=== PATIENT | male | born 1960 | race African-American/Black ===

== ENCOUNTER 2017-02-10 09:14 | Emergency (ER) | payer MEDICAID, OTHER ==
[~2017-02-10] VITALS: Ht 167.6 cm; Wt 96.2 kg
[2017-02-10] MEDS ORDERED: Ketorolac 30mg Inj IM ONE (11:15)
[2017-02-10] MEDS ORDERED: IBUPROFEN600 MG ORAL (11:30)
[2017-02-10 11:51] VITALS: BP 110/70
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
== END 2017-02-10 11:57 | disposition home or self-care (01) ==
LOC: EMR 10:15
DX: M79.605 Pain in left leg (principal); G89.29 Other chronic pain; R60.9 Edema, unspecified; F20.9 Schizophrenia, unspecified
CPT/HCPCS: 73590; 96372; 99283; J1885

== ENCOUNTER 2018-05-09 14:31 | Emergency (ER) | payer OTHER ==
[~2018-05-09] VITALS: Ht 170.2 cm; Wt 101.2 kg
[~2018-05-09 14:31] MED LIST: IBUPROFEN600 MG ORAL
[2018-05-09] MEDS ORDERED: Isovue-300 100ml vial INJ PRN (15:15)
--- NOTE | 2018-05-09 15:59 | Emergency Room Report ---
History of Present Illness General Chief Complaint: Lower Back Pain or Injury Source: Patient Present Illness HPI 57 y.o. M, hx of lower leg deformity post surgery/accident, schizophrenia, here c/o 2 days of left ankle pain and left flank pain post fall and twisting injury. pt was comming down stairs with his cane 2 days ago, missted a step, and twisted left ankle, hiting left flank to the railing. c/o left flank pain, radiating to left leg, and left ankle pain both 8/10. denies tingling/ numbness. took Ibuprofen for pain. also c/o dysuria, no urinary/bowel incontience, no saddle parasthesia. denies hematuria, head injury, cp, sob, palpitation. Allergies: Coded Allergies: No Known Allergies (Unverified , 02/10/17) Patient History Past Medical History: see triage record Past Surgical History: none Pertinent Family History: none Reviewed Nursing Documentation: PMH: Agreed; PSxH: Agreed Nursing Documentation-PMH History Of Psychiatric Problem: Yes - Schizophrenia, Bipolar Depression Review of Systems All Other Systems: negative except mentioned in HPI Physical Exam Vital Signs Date Time Temp Pulse Resp B/P (MAP) Pulse Ox O2 Delivery O2 Flow Rate FiO2 05/09/18 14:41 98.3 92 18 151/96 95 Room Air 98.2 Sp02 EP Interpretation: reviewed General Appearance: normal inspection, well appearing, no apparent distress, alert, GCS 15 Eyes: bilateral eye normal inspection, bilateral eye PERRL ENT: normal ENT inspection, hearing grossly normal Neck: normal inspection, full range of motion, supple Respiratory: normal inspection, chest non-tender, lungs clear, normal breath sounds, no rhonchi, no respiratory distress, no retraction, no accessory muscle use Cardiovascular #1: normal inspection, normal peripheral pulses, regular rate, rhythm, no edema, no JVD, no murmur Cardiovascular #2: 2+ dorsalis pedis (R), 2+ dorsalis pedis (L) Gastrointestinal: normal inspection, normal bowel sounds, non tender, soft, no mass Rectal: deferred Genitourinary: deferred Musculoskeletal: no calf tenderness, pelvis stable, decreased range of motion - left extremitiy , Ricky's Sign negative, swelling - left ankle and foot, other - left flank TTP Neurologic: normal inspection, alert, oriented x3 Psychiatric: normal inspection, judgement/insight normal, memory normal Skin: normal inspection, normal color, no rash, other - deformity of skin over left lower extremitiy Lymphatic: normal inspection, no adenopathy Medical Decision Making PA Attestation all dx, orders, tx plans reviewed and discussed with my supervising physcian Dr. Baldwin Reaction to Intervention: Improved Diagnostic Impression: Primary Impression: Contusion of flank and back Additional Impression: Ankle sprain ER Course 57 y.o. M, hx of lower leg deformity post surgery/accident, schizophrenia, here c/o 2 days of left ankle pain and left flank pain post fall and twisting injury. pt was comming down stairs with his cane 2 days ago, missted a step, and twisted left ankle, hiting left flank to the railing. c/o left flank pain, radiating to left leg, and left ankle pain both 8/10. denies tingling/ numbness. took Ibuprofen for pain. also c/o dysuria, no urinary/bowel incontience, no saddle parasthesia. denies hematuria, head injury, cp, sob, palpitation. Ddx considered but are not limited to ankle fx, contusion to abdomen, ankle sprain Vital signs: are WNL, pt. is afebrile H&PE are most consistent with abd contusion, ankle sprain ORDERS: L ankle and L foot Xray, abd CT w/contrast, CBC, CMP, UA ED INTERVENTIONS: tramadol 50mg po given in ED once DISCHARGE: At this time pt. is stable for d/c to home. Will provide printed patient care instructions, and any necessary prescriptions. Care plan and follow up instructions have been discussed with the patient prior to discharge. BUn and creatinine WNL RBC in UA: 0-2 Lab Results Impression no acute etiology WNL Other X-Ray Diagnostic Results Other X-Ray Diagnostic Results : X-Ray ordered: left ankle and foot # of Views/Limited Vs Complete: 2 View Indication: Swelling EP Interpretation: Yes PA Xray: Interpretation reviewed, by supervising MD, and agrees with findings. Interpretation: no dislocation, no soft tissue swelling, no fractures, other - old fx of tibia and fibula Electronically Signed by: kristofer Worrell PA-C CT/MRI/US Diagnostic Results CT/MRI/US Diagnostic Results : Imaging Test Ordered: abd CT w/contrast Impression CT ABDOMEN & PELVIS With Contrast: No appendicitis, SBO, or diverticulitis. Moderate colonic stool. Mildly thickened distal esophagus which may be hiatal hernia, underdistention, versus esophagitis. No hydronephrosis or ureteral calculus. Left adrenal small nodularity. Unremarkable gallbladder and pancreas. Last Vital Signs Date Time Temp Pulse Resp B/P (MAP) Pulse Ox O2 Delivery O2 Flow Rate FiO2 05/09/18 14:41 98.3 92 18 151/96 95 Room Air 98.2 Status: improved Disposition: HOME, SELF-CARE Condition: Stable Scripts Tramadol Hcl* (ULTRAM*) 50 Mg Tablet 50 MG ORAL Q12 PRN for For Pain for 7 Days, #15 TAB 0 Refills Prov: Kristofer Pandya 05/09/18 Patient Instructions: Ankle Sprain, Contusion, Back Pain, Adult Additional Instructions: follow up with primary dr, take tramadol as directed, avoid straneous physical activity if pain worsens return to ED Kristofer Pandya May 09, 2018 15:59
[2018-05-09 16:05] LABS: APPEARANCE,URINE CLEAR; BILIRUBIN, URINE NEGATIVE (NEGATIVE); COLOR,URINE PALE YELLOW; GLUCOSE, URINE (UA) NEGATIVE (NEGATIVE); KETONES,URINE NEGATIVE (NEGATIVE); LEUKOCYTE ESTERASE ,URINE NEGATIVE (NEGATIVE); NITRITE,URINE NEGATIVE (NEGATIVE); PH,URINE 6.5 (4.5-8.0); PROTEIN,URINE NEGATIVE (NEGATIVE); UROBILINOGEN,URINE NORMAL MG/DL (0.0-1.0)
[2018-05-09 16:06] LABS: EOSINOPHILS % (AUTO) 1.2 % (0.0-3.0); HEMATOCRIT 43.7 % (42.0-52.0); HEMOGLOBIN 15.4 G/DL (14.2-18.0); LYMPHOCYTES % (AUTO) 41.4 % (20.0-45.0); MEAN CORPUSCULAR VOLUME 91 FL (80-99); MONOCYTES % (AUTO) 5.4 % (1.0-10.0); PLATELET COUNT 233 K/UL (150-450); RED BLOOD COUNT 4.79 M/UL (4.70-6.10); WHITE BLOOD COUNT 6.8 K/UL (4.8-10.8)
[2018-05-09] MEDS ORDERED: traMADol 50mg tab ORAL ONE (16:30)
[2018-05-09 16:35] LABS: ANION GAP 8 mmol/L (5-15); BLOOD UREA NITROGEN 10 mg/dL (7-18); CALCIUM 8.8 MG/DL (8.5-10.1); CARBON DIOXIDE 27 MMOL/L (21-32); CHLORIDE 105 MMOL/L (98-107); POTASSIUM 3.6 MMOL/L (3.5-5.1); SODIUM 140 MMOL/L (136-145)
[2018-05-09 16:40] LABS: ALANINE AMINOTRANSFERASE 46 U/L (12-78); ALBUMIN 3.7 G/DL (3.4-5.0); ALKALINE PHOSPHATASE 71 U/L (46-116); ASPARTATE AMINO TRANSFERASE 26 U/L (15-37); BILIRUBIN,TOTAL 0.4 MG/DL (0.2-1.0)
[2018-05-09] MEDS ORDERED: TRAMADOL HCL50 MG ORAL (17:42)
[2018-05-09 18:15] VITALS: BP 150/96
--- NOTE | 2018-05-10 08:46 | Diagnostic Imaging Report ---
Clinical Indication: Left flank pain Technique: No oral contrast utilized, per emergency room physician request IV administration nonionic contrast. Venous phase spiral acquisition obtained through the abdomen and pelvis. Multiplanar reconstructions were generated. Total dose length product 1025 mGycm. CTDIvol(s) 18 mGy. Dose reduction achieved using automated exposure control Comparison: none Findings: The appendix is normal. There is colonic diverticulosis. No evidence of diverticulitis. There is a tiny fat-containing right inguinal hernia. No small bowel distention. No free or loculated intraperitoneal air or fluid is evident. There is a small sliding-type hiatal hernia. The stomach demonstrates a fundal diverticulum. The duodenum is unremarkable. The liver, gallbladder, bile ducts, pancreas, spleen, adrenals are unremarkable. The kidneys are unremarkable. No retroperitoneal or mesenteric mass or adenopathy. No pelvic mass or adenopathy. Bladder is unremarkable. The included lung bases demonstrate posterior dependent atelectatic changes. The heart is upper limits normal in size. The bones demonstrate minimal degenerative spondylosis changes. A small bone island seen in the left iliac bone Impression: No acute abnormality Colonic diverticulosis. No evidence of diverticulitis Incidental findings as noted, including tiny fat-containing right inguinal hernia, hiatal hernia, gastric fundal diverticulum, degenerative spondylosis This agrees with the preliminary interpretation provided overnight by [facility] teleradiology service. . The CT scanner at [facility] is accredited by the [employer] and the scans are performed using protocols designed to limit radiation exposure to as low as reasonably achievable to attain images of sufficient resolution adequate for diagnostic evaluation
--- NOTE | 2018-05-10 10:55 | Diagnostic Imaging Report ---
Indication: Pain, trauma Technique: 3 views of the left ankle Comparison: none Findings: There is marked chronic appearing deformity of the ankle. Screw holes from presumably prior hardware are seen in the distal tibia, talus, and calcaneus. There is an old healed fracture deformity of the distal fibula. There is marked narrowing of the ankle joint and adjacent joint surfaces. The ankle joint may even be ankylosed, although this is difficult to state. No definite acute fractures no dislocations. Bones appear somewhat demineralized Impression: Extensive chronic, posttraumatic, postsurgical deformity, as described No definite acute bony trauma. However, the extent of the chronic changes makes superimposed acute process difficult to confidently exclude
--- NOTE | 2018-05-10 15:07 | Diagnostic Imaging Report ---
Indication: Pain, trauma Technique: 3 views left foot Comparison: none Findings: There is hallux valgus. No definite acute fractures. No dislocations. There is extensive chronic appearing deformity of the ankle and hindfoot. Bones appear osteoporotic Impression: No acute process. Findings as noted
== END 2018-05-09 18:15 | disposition home or self-care (01) ==
LOC: EMR 15:19
DX: S30.0XXA Contusion of lower back and pelvis, initial encounter (principal); S93.402A Sprain of unspecified ligament of left ankle, initial encounter; W19.XXXA Unspecified fall, initial encounter; Y92.9 Unspecified place or not applicable; F20.9 Schizophrenia, unspecified; F31.9 Bipolar disorder, unspecified; K57.30 Diverticulosis of large intestine without perforation or abscess without bleeding
CPT/HCPCS: 36415; 73610; 73630; 74177; 80053; 81001; 85025; 99284; Q9967

== ENCOUNTER 2018-05-12 09:20 | Emergency (ER) | payer OTHER ==
[~2018-05-12] VITALS: Ht 170.2 cm; Wt 100.7 kg
[~2018-05-12 09:20] MED LIST changes: +TRAMADOL HCL50 MG ORAL
[2018-05-12 09:37] VITALS: BP 144/89
--- NOTE | 2018-05-12 10:32 | Emergency Room Report ---
History of Present Illness General Chief Complaint: Lower Back Pain or Injury Source: Patient Present Illness HPI Patient fell at [employer] [place] down steps. He was seen here initially with xrays and CT. Has had tramadol but still with pain and requesting back brace. Pain is in lower back. Stiffness and muscular. No other subsequent trauma. He is in recovery and Motrin was not filled or given to him. The pain is rated 9/10, more on L side. No new weakness, numbness, saddle numbness, incontinence, fevers, dysuria. Walks with cane as had prior L ankle injury and surgery. There is chronic swelling of the ankle which is unchanged. Allergies: Coded Allergies: No Known Allergies (Unverified , 02/10/17) Patient History Past Medical History: see triage record Past Surgical History: other - L ankle surgery Social History: Reports: smoking, drug use - prior Social History Narrative [facility] Reviewed Nursing Documentation: PMH: Agreed; PSxH: Agreed Nursing Documentation-PMH History Of Psychiatric Problem: Yes Review of Systems Constitutional: Reports: see HPI Respiratory: Denies: cough Cardiovascular: Denies: chest pain Gastrointestinal: Denies: nausea Genitourinary: Reports: see HPI Musculoskeletal: Reports: see HPI Skin: Denies: rash Neurological: Reports: see HPI Hematologic/Lymphatic: Denies: easy bleeding Physical Exam Vital Signs Date Time Temp Pulse Resp B/P (MAP) Pulse Ox O2 Delivery O2 Flow Rate FiO2 05/12/18 09:28 98.4 79 18 144/89 98 Room Air 98.4 Sp02 EP Interpretation: reviewed, normal General Appearance: well appearing, no apparent distress, GCS 15 Head: normocephalic, atraumatic Eyes: left eye other - tear tattoos; bilateral eye normal inspection, bilateral eye PERRL ENT: hearing grossly normal, normal voice, moist mucus membranes Neck: full range of motion, supple Respiratory: chest non-tender, lungs clear, normal breath sounds, no respiratory distress, speaking full sentences Cardiovascular #1: regular rate, rhythm, edema - L lower leg Cardiovascular #2: 2+ radial (L) Gastrointestinal: normal inspection, normal bowel sounds, overweight Musculoskeletal: other - no Ricky's, lumbar tenderrness, not bony. Able to sit and stand without difficulty. Walks with cane and has chronic discomfot in L ankle. (Chin is there.) SLR with inc in lumbar tenderness, no radiation to lower leg Neurologic: alert, motor strength/tone normal, DTRs symmetric, sensory intact, speech normal Psychiatric: mood/affect normal Skin: no rash Medical Decision Making Diagnostic Impression: Primary Impression: Low back pain Qualified Codes: M54.5 - Low back pain Additional Impression: Unspecified injury of lower back, sequela ER Course Patient with continued pain post fall 05/09. DDx: muscle spasm, strain, disk disease. He has not been taking anti-inflammatory medication. These will help. Need to review studies and will give Motrin here. Also, requesting back brace (which will be prescribed). No fevers or urinary symptoms, however, will check urine to exclude UTI. X ray studies reviewed. UA clear. Improved with treatment. Discussed need for physical therapy. Patient stable for outpatient observation and treatment. Labs Test 05/12/18 10:05 Urine Color Yellow Urine Appearance Clear Urine pH 6. (4.5-8.0) Urine Specific [place] 1.020 (1.005-1.035) Urine Protein Negative (NEGATIVE) Urine Glucose (UA) Negative (NEGATIVE) Urine Ketones Negative (NEGATIVE) Urine Occult Blood Negative (NEGATIVE) Urine Nitrite Negative (NEGATIVE) Urine Bilirubin Negative (NEGATIVE) Urine Urobilinogen Normal MG/DL (0.0-1.0) Urine Leukocyte Esterase 1+ (NEGATIVE) Urine RBC 0 /HPF (0 - 0) Urine WBC 0-2 /HPF (0 - 0) Urine Squamous Epithelial Cells Occasional /LPF Urine Bacteria Occasional /HPF (NONE) Last Vital Signs Date Time Temp Pulse Resp B/P (MAP) Pulse Ox O2 Delivery O2 Flow Rate FiO2 05/12/18 12:06 98.6 76 15 137/85 100 Room Air 98.6 Status: improved Disposition: HOME, SELF-CARE - Jump Start Condition: Improved Scripts Back Brace (BACK STABILIZER) 1 Each Each EACH for injury, #1 Prov: Jerel Martinez M.D. 05/12/18 Acetaminophen (Tylenol) 325 Mg Tablet 650 MG ORAL Q6H PRN for Prn Pain/Headache/Temp > 101, #20 TAB 0 Refills Prov: Jerel Martinez M.D. 05/12/18 Ibuprofen* (MOTRIN*) 600 Mg Tablet 600 MG ORAL Q6H PRN for For Pain, #20 TAB Prov: Jerel Martinez M.D. 05/12/18 Referrals: NON PHYSICIAN (PCP) Jerel Martinez M.D. May 12, 2018 10:32
[2018-05-12 10:35] LABS: APPEARANCE,URINE CLEAR; COLOR,URINE YELLOW
[2018-05-12] MEDS ORDERED: TYLENOL325 MG ORAL (10:35)
[2018-05-12] MEDS ORDERED: IBUPROFEN600 MG ORAL (10:35)
[2018-05-12 10:38] LABS: BILIRUBIN, URINE NEGATIVE (NEGATIVE); GLUCOSE, URINE (UA) NEGATIVE (NEGATIVE); KETONES,URINE NEGATIVE (NEGATIVE); NITRITE,URINE NEGATIVE (NEGATIVE); PROTEIN,URINE NEGATIVE (NEGATIVE); UROBILINOGEN,URINE NORMAL MG/DL (0.0-1.0)
[2018-05-12 10:39] LABS: LEUKOCYTE ESTERASE ,URINE 1+ (NEGATIVE)
[2018-05-12] MEDS ORDERED: BACK STABILIZE1 EACH MC (11:41)
[2018-05-12 12:06] VITALS: BP 137/85
== END 2018-05-12 12:05 | disposition home or self-care (01) ==
LOC: EMR 10:17
DX: S39.92XA Unspecified injury of lower back, initial encounter (principal); W19.XXXA Unspecified fall, initial encounter; Y92.410 Unspecified street and highway as the place of occurrence of the external cause
CPT/HCPCS: 81003; 99284